=== PATIENT | male | born 1965 | race Caucasian/White ===

== ENCOUNTER → 2024-01-04 | Day surgery (SDC) | payer BC ==
[~2024-01-04] MED LIST: Midazolam 1 MG/ML 2 ML SDV IV ONE; Propofol 200 MG/20 ML SDV IV ONE; Sodium Chloride 0.9% 10 ML Syringe FLUSH PRN; fentaNYL 100 MCG/2 ML SDV IV ONE
[2024-01-04] MEDS: Lactated Ringers 1,000 ML IV SCH (09:04)
[2024-01-04] MEDS: Simethicone Drops 40 MG/0.6 ML 30 ML Bottle ONE (09:29)
[2024-01-04] MEDS: Albuterol/Ipratropium 3.0-0.5 MG/3 ML Neb Soln NEB ONE (10:34)
== END ==
LOC: FB.SDS 07:57
PROVIDERS: ATTEND Surgery
DX: Z12.11 Encounter for screening for malignant neoplasm of colon (principal); I11.0 Hypertensive heart disease with heart failure; I50.23 Acute on chronic systolic (congestive) heart failure; Z87.891 Personal history of nicotine dependence; Z80.0 Family history of malignant neoplasm of digestive organs
CPT/HCPCS: 00812; A9270-GY; J2250; J2704; J3010; J7120; J7620